=== PATIENT | male | born 1950 | race Caucasian/White ===

== ENCOUNTER → 2019-06-29 | Outpatient (CLI) | payer OTHER ==
[~2019-06-29] MED LIST: ACCUPRIL40 MG PO; ADULT ASPIRIN R81 MG PO; ATENOLOL 50MG T50 M1 PO; DEPO-TESTO200 MG/1 M IM; EFFIENT10 MG PO; FLUOXETINE HCL10 M1 PO; INVOKANA300 MG PO; JANUVIA100 MG PO; LIPITOR80 MG PO; SILDENAFIL CIT100 MG PO
== END | disposition home or self-care (01) ==
LOC: SJCVCIMAG 13:28
DX: I25.10 Atherosclerotic heart disease of native coronary artery without angina pectoris (principal); I10 Essential (primary) hypertension; E78.5 Hyperlipidemia, unspecified; I65.23 Occlusion and stenosis of bilateral carotid arteries; E11.9 Type 2 diabetes mellitus without complications; Z79.899 Other long term (current) drug therapy; Z79.82 Long term (current) use of aspirin

== ENCOUNTER → 2019-07-05 | Outpatient (CLI) | payer OTHER | LOC: SJCVC 10:09 | DX: E11.9 Type 2 diabetes mellitus without complications (principal); E29.1 Testicular hypofunction ==

== ENCOUNTER 2019-07-07 06:32 | Inpatient (IN) | payer OTHER ==
[~2019-07-07] VITALS: Ht 177.8 cm; Wt 71.5 kg
[2019-07-07] VITALS (10 sets, daily range): BP systolic 135–150; BP diastolic 70–80
[2019-07-07] MEDS ORDERED: ADULT ASPIRIN R81 MG PO ×2 (07:37)
[2019-07-07] MEDS ORDERED: ATENOLOL 50MG T50 M1 PO ×2 (07:38)
[2019-07-07] MEDS ORDERED: DEPO-TESTO200 MG/1 M IM ×2 (07:39)
[2019-07-07] MEDS ORDERED: FLUOXETINE HCL10 M1 PO ×2 (07:39)
[2019-07-07] MEDS ORDERED: INVOKANA300 MG PO ×2 (07:40)
[2019-07-07] MEDS ORDERED: ACCUPRIL40 MG PO ×2 (07:41)
[2019-07-07] MEDS ORDERED: JANUVIA100 MG PO ×2 (07:41)
[2019-07-07] MEDS ORDERED: SILDENAFIL CIT100 MG PO ×2 (07:42)
[2019-07-07] MEDS ORDERED: LIPITOR80 MG PO ×2 (10:27)
--- NOTE | 2019-07-07 15:21 | NUR ---
PT ADMITED FROM CARDIAC CATH. ADMISSION HX AND ASSESSMENT COMPLETED. RIGHT GROIN INCISION C/D/I. NO HEMATOMA NOTED. POST CARDIAC CATH INSTRUCTIONS GIVEN TO PT. PT VERBERLISED UNDERSTANDING. WILL CONTINUE TO MONITOR.
--- NOTE | 2019-07-07 16:53 | CATHLAB ---
[facility] [place] [address] INVASIVE PROCEDURE REPORT Name: LESTER WILLS Room #: 210-P ADM IN M.R.#: [id number] Admission: 07/07/19 Attend Phys: Chet Dick MD, Discharge: Date of : 48 Report #: [id number] THIS REPORT FOR: cc: Graham Gonzalez MD, Neal A. MD Lundgren, Craig H. MD [facility] ~ APPROVED REPORT Study performed: 07/07/2019 07:59:09 Patient Details Patient Status: Out-Patient Room #: The patient is a 68 year-old male Event Personnel Chet Dick Lamp Developer, Gladys London RT(R)() Niyah Khan Marie RN RN, Kimber Montilla RTR Monitor, Earnestine Pena Monitor Procedures Performed Art Access - R femoral artery* Left Heart Cath w/or w/o Coronaries 2623879 [facility] [address]18 Initial Mod Sed Same Phys/QHP Gr5y 880616 27690 Mod Sed Same Phys/QHP Ea 148838 DUONG Place w/wo Plasty Single RCA 006102 Hemostasis w/ Mynx Indication Chest pain Procedure Narrative The patient was brought electively to the Cardiac Catheterization Laboratory and was prepped and draped in a sterile manner. The Right Groin^ was infiltrated with 1% Lidocaine subcutaneous anesthesia. A PINNACLE 6FR Sheath #[id number] sheath was inserted into the RFA^. Coronary angiography was performed using coronary diagnostic catheters. The right coronary system was accessed and visualized with a 6FR 3DRC #[id number] catheter. The left coronary system was accessed and visualized with a 6FR JL4 catheter. The left ventricle was accessed and visualized with a PIGTAIL catheter. Left ventricular/Aortic Valve gradient assessed via catheter pullback. Left ventriculogram was performed in BURR projection. Closure device was deployed with a 6 Fr Mynx. The patient tolerated the procedure well and there were no complications associated with the procedure. There was no hematoma. [facility] [address] [place] [address] INVASIVE PROCEDURE REPORT Name: LESTER WILLS HURON Room #: 210-P [facility] IN [facility]#: [id number] Admission: 07/07/19 Attend Phys: Chet Dick, Discharge: Date of : 48 Report #: [id number] Intraoperative Conscious Sedation Sedation start time: 08:15 Case end Time: 09:50 Fentanyl 100 mcg Versed 1 mg Fluoro Time: 31.10 minutes Dose: DAP 09020.00 cGycm2 4978 mGy Contrast Type and Amount: Omnipaque 340 ml Coronary Angiography The patient's coronary anatomy is right dominant. Diagnostic Cath Left Main Normal left main LAD 10-20% calcific proximal to mid LAD plaquing Circumflex Relatively small, nondominant circumflex comprised of a single marginal branch OM1 Mild proximal OM branch plaquing Right Coronary Critical proximal, ostial intrastent right coronary artery stenosis Fairly extensive ezgz-sy-vlaxs collateralization Ramus Moderately large ramus branch with mild proximal plaquing Left Ventriculography The left ventricle is normal in size with abnormal contractility. The left ventricular ejection fraction is estimated to be 45-50%. Left ventricular wall motion abnormalities are present. There is no mitral insufficiency. Hypokinesis involving the base of the inferior wall. Hemodynamics The aortic pressure is 151/69 mmHg with a mean of 98 mmHg. The left ventricular pressure is 144/3 mmHg with a mean of mmHg. The left ventricular end diastolic pressure is 17 mmHg. PCI Technique Lesion Anticoagulation was achieved with Heparin, Integrilin. Patient was preloaded with Effient. Percutaneous coronary intervention was performed on the proximal right coronary artery. The lesion stenosis prior to intervention was 99% with PRABHAKAR 2 flow. A LAUNCHER 6FR JL4 #[id number] Guide Catheter was used to engage the RCA ostium. A Luge Wire .014 x 182CM #[id number] Interventional Guidewire was used to cross the lesion. [facility] [address] [place] [address] INVASIVE PROCEDURE REPORT Name: LESTER WILLS Room #: 210-P [facility] IN .R.#: [id number] Admission: 07/07/19 Attend Phys: Chte Dick, Discharge: Date of : 48 Report #: [id number] BALLOON DILATION A Balloon catheter Euphora RX 2.5 x 12 #[id number] was inserted and inflated up to 16.00atm for 39seconds. Additional Inflation: 18.00atm for 42seconds. Additional Inflation: 18.00atm for 32seconds. STENT DEPLOYMENT A drug-eluting stent RESOLUTE KATIA RX 3.0 X 30 #[id number] was inserted and inflated up to 16.00atm for 30seconds. Repeat angiography revealed the following post-stent deployment results: this 30 mm stent did not completely cover the ostium, covered with a 3.0 x 8mm Resolute in sequence. POST STENT DEPLOYMENT BALLOON DILATION A Balloon catheter TREK NC RX 3.25 X 15 #[id number] was inserted and inflated up to 18.00atm for 39seconds. Additional Inflation: 21.00atm for 34seconds. Additional Inflation: 21.00atm for 26seconds. Final angiography reveals 0 % stenosis with PRABHAKAR 3 flow. STENT DEPLOYMENT A drug-eluting stent RESOLUTE KATIA RX 3.0 X 8 #[id number] was inserted and inflated up to 18.00atm for 40seconds. Conclusion 1. Mild left ventricular dysfunction with hypokinesis involving the inferior wall. Ejection fraction 45-50% 2. Normal left main 3. Mild calcific plaquing of the LAD and nondominant circumflex 4. Severe ostial and proximal right coronary stenosis (old 3.0mm S7 AVE stent), restented with a 3.0 x 30 mm Resolute, and 3.0 x 18 mm more proximal to this in sequence at the ostium. Both postdilated to 3.5 mm Recommendations Cardiac Rehabilitation Referral Aggressive Medical Therapy <ELECTRONICALLY SIGNED> By: Chet Dick MD, [facility] 07/07/191652 52 52 Chet Dick MD, FAC /INF
[2019-07-08] VITALS: BP 138/72
[2019-07-08 00:33] VITALS: BP 138/72
--- NOTE | 2019-07-08 03:34 | NUR ---
ASSESSMENT DOCUMENTED,PT BEEN RESTING IN NO ACUTE DISTRESS.A/OX4.VSS.POST CARDIAC SARI WITH INTERVENTIONS.NSR.RIGHT GROIN INTACT W/O HEMATOMA OR ACTIVE BLEEDING.DRESSING CDI.NO CONCERNS VOICED AT THIS TIME.PT TO DISCHARGE TO HOME TODAY.WILL CONT TO MONITOR PER POC.
[2019-07-08 04:43] VITALS: BP 128/65
[2019-07-08 05:20] VITALS: BP 128/65
[2019-07-08 05:22] LABS: HEMATOCRIT 43.4 % (42.0-52.0); HEMOGLOBIN 14.4 gm/dL (14.0-18.0); MCH 31.3 pg (26.0-34.0); MCHC 33.1 g/dL (28.0-37.0); MCV 94.4 fL (80.0-100.0); RBC 4.6 mil/uL (4.50-6.00); WBC 6.9 thou/uL (4.0-11.0)
[2019-07-08 05:46] LABS: ALBUMIN 3.5 g/dL (3.4-5.0); ANION GAP 9 mmol/L (7-16); BUN 12 mg/dL (7-18); CALCIUM 8.8 mg/dL (8.5-10.1); CHLORIDE 102 mmol/L (98-107); CHOLESTEROL 105 mg/dL (<200); CO2 28 mmol/L (21-32); CREATININE 0.7 mg/dL (0.7-1.3); GLUCOSE 138 mg/dL (74-106); HDL CHOLESTEROL 25 mg/dL (>40); LDL CHOLESTEROL 43 mg/dL (<100); SGOT 16 U/L (15-37); SGPT 29 U/L (30-65); SODIUM 139 mmol/L (136-145); TC:HDL 4.2 Ratio (Not establshd); TOTAL BILIRUBIN 0.9 mg/dL (<0.1-1.0); TOTAL PROTEIN 7.1 g/dL (6.4-8.2); TRIGLYCERIDE 186 mg/dL (<150); VLDL 37 mg/dL (<40)
[2019-07-08 05:48] LABS: SERUM ASSESSMENT Clear
[2019-07-08] MEDS ORDERED: EFFIENT10 MG PO ×2 (07:46)
[2019-07-08 08:00] VITALS: BP 136/64
[2019-07-08 09:38] VITALS: BP 136/64
--- NOTE | 2019-07-08 10:38 | NUR ---
ASSESSMENT CHARTED. PT ALERT AND ORIENTED.VSS, DENIED HAVING PAIN OR DISCOMFORT. RIGHT GROIN INCISION C/D/I. NO HEMATOMA NOTED. ORDERS GIVEN TO DISCHARGE PT TO HOME. DISCHARGE INSTRUCTIONS GIVEN TO PT. PT VERBERLISED UNDERSTANDING.
--- NOTE | 2019-07-11 10:45 | D ---
[facility] [address] DISCHARGE SUMMARY Name: LESTER WILLS Room #: 210-P [facility] IN M.R.#: [id number] Admission: 07/07/19 Attend Phys: Chet Dick MD, Discharge: 07/08/19 Date of : 48 Report #: [id number] THIS REPORT FOR: cc: Graham Gonzalez MD, Neal A. MD Lundgren, Craig H. MD [facility] ~ THIS REPORT FOR: //name// CC: Chet Gonzalez MD DATE OF SERVICE: 07/07/2019 DISCHARGE DIAGNOSES: 1. Unstable angina with stenting of the proximal right coronary with a 3.0 x 30 mm and 3.0 x 8 mm Resolute stents, postdilated to 3.5 mm. 2. Hypertension. 3. Diabetes. 4. Dyslipidemia. HISTORY OF PRESENT ILLNESS: For the complete details of the history of present illness, see dictated history and physical. Briefly, the patient is a 68-year-old gentleman with a history of remote nonmedicated stenting of the proximal right coronary (3.0 x 12 mm S7 stent) in 2002. His history includes hypertension, diabetes and dyslipidemia. Over the past several weeks, the patient had experienced midsternal chest tightness and "indigestion" with exertion. He reports that this was reminiscent to what he experienced prior to his stenting procedure many years ago. No heart failure symptoms including orthopnea, paroxysmal nocturnal dyspnea or lower extremity edema. An outpatient stress study suggested provokable myocardial inferior ischemia. Symptoms were reproduced. He was admitted now for coronary angiography. HOSPITAL COURSE: The patient underwent coronary angiography. The full details of this can be found under separate heading and dictation. In summary, mild left ventricular dysfunction was present with inferior wall hypokinesis. The LAD, left main and circumflex exhibited mild calcific plaquing. Right coronary was dominant and subtotally occluded with PRABHAKAR 1-2 flow. He underwent a fairly complicated stenting of this calcified and bulky stenosis. A 3.0 x 30 mm Resolute stent was placed proximally. This failed to completely cover the ostial stenosis, which was then stented with a 3.0 x 8 mm Resolute stent in sequence. Both stents were postdilated to 3.5 mm with a noncompliant balloon. He was treated with heparin, Integrilin, Effient and aspirin in the periprocedural setting. He was ambulating with excellent groin hemostasis at the time of discharge. [address] [address] DISCHARGE SUMMARY Name: LESTER WILLS Room #: [address] [place] [address] [place] ..#: [id number] Admission: 07/07/19 Attend Phys: Chet Dick MD, Discharge: 07/08/19 Date of : 48 Report #: [id number] DISCHARGE MEDICATIONS: Discharge medicines were reconciled. Arrangements were made for outpatient cardiac rehabilitation. Discharge medicines include the following: Aspirin 81 mg daily, Effient 10 mg daily, Tenormin 50 mg daily, atorvastatin 80 mg daily, Prozac 20 mg daily, Invokana 300 mg daily, Januvia 100 mg daily, metformin 500 mg at breakfast, quinapril 40 mg daily. DISCHARGE DIET: Low fat, low cholesterol, prudent diabetic diet. DISCHARGE ACTIVITY: As instructed post-catheterization and stenting. Arrangements were made for outpatient cardiac rehabilitation. DISCHARGE FOLLOWUP: With Dr. Gonzalez as directed. FOLLOWUP: With myself in 4-6 weeks. DISCHARGE CONDITION: Stable and improved. <ELECTRONICALLY SIGNED> By: Chet Dick MD, FACC 07/11/19 1045 1730 1937 Chet Dick MD, FACC /nt
--- NOTE | 2019-08-05 15:20 | EKG ---
[facility] [place] [address] ELECTROCARDIOGRAM REPORT Name: LESTER WILLS Room #: 210-[facility] IN M.R.#: [id number] Admission: 07/07/19 Attend Phys: Chet Dick MD, Discharge: 07/08/19 Date of : 48 Report #: [id number] THIS REPORT FOR: cc: Graham Gonzalez MD, Neal A. MD Couchonnal, Luis F. MD ~ THIS REPORT FOR: //name// [facility] Test Date: 2019-07-07 Test Time: 10:21:53 Pat Name: LESTER WILLS Department: Room: Gender: Developer Designer: Andi FLYNN : 1950 Requested By: Chet Dick Order Number: [id number] MD: Rizwan Alvarez Measurements Intervals [place] Rate: 61 P: 14 OR: 139 QRS: -50 QRSD: 106 T: -53 QT: 433 QTc: 437 Interpretive Statements Sinus rhythm Abnormal R-wave progression, late transition Inferior infarct, age indeterminate Compared to ECG 09/17/2002 06:41:40 Electronically Signed On 07-07-2019 11:42:41 SENIOR PROJECT ARCHITECT by Rizwan Alvarez [email or web address] <ELECTRONICALLY SIGNED> By: Rizwan Alvarez MD 07/07/19 1142 1021 1021 Rizwan Alvarez MD /EPI
--- NOTE | 2019-08-05 15:21 | EKG ---
[facility] [place] [address] ELECTROCARDIOGRAM REPORT Name: LESTER WILLS Room #: 210-P DIS IN M.R.#: [id number] Admission: 07/07/19 Attend Phys: Chet Dick MD, Discharge: 07/08/19 Date of : 48 Report #: [id number] THIS REPORT FOR: cc: Graham Gonzalez MD, Neal A. MD Lundgren,Chet Herrera MD [facility] ~ THIS REPORT FOR: //name// [facility] Test Date: 2019-07-08 Test Time: 07:08:12 Pat Name: LESTER WILLS Department: Room: 210 P Gender: M Sales Development Director: STANISLAV : 1950 Requested By: Chet Dick Order Number: [id number] MD: Chet Dick Measurements Intervals [place] Rate: 67 P: 7 AL: 133 QRS: -46 QRSD: 101 T: -46 QT: 401 QTc: 424 Interpretive Statements Sinus rhythm Inferior infarct, age indeterminate Compared to ECG 07/07/2019 10:21:53 No significant changes Electronically Signed On 07-08-2019 9:09:13 LOG RIDER by Chet Dick [email or web address] <ELECTRONICALLY SIGNED> By: Chet Dick MD, [facility] 07/08/19908 7 7 Chet Dick MD, [facility] /EPI
== END 2019-07-08 10:52 | disposition home or self-care (01) | DRG 247 ==
LOC: CATH 06:32 → 2N 14:08 → CATH 14:13 → ENTRNSPT 07-08 10:36 → EDTRNSPTSTS 07-08 10:40 → 2N 07-08 10:52
PROVIDERS: ADMIT Internal Medicine
PROC: 4A023N7 Measurement of Cardiac Sampling and Pressure, Left Heart, Percutaneous Approach (ICD-10-PCS; principal; 2019-07-07)
PROC: 027135Z Dilation of Coronary Artery, Two Arteries with Two Drug-eluting Intraluminal Devices, Percutaneous Approach (ICD-10-PCS; principal; 2019-07-07)
PROC: B2111ZZ Fluoroscopy of Multiple Coronary Arteries using Low Osmolar Contrast (ICD-10-PCS; principal; 2019-07-07)
PROC: B2151ZZ Fluoroscopy of Left Heart using Low Osmolar Contrast (ICD-10-PCS; principal; 2019-07-07)
DX: I25.110 Atherosclerotic heart disease of native coronary artery with unstable angina pectoris (principal); I10 Essential (primary) hypertension; E11.9 Type 2 diabetes mellitus without complications; E78.5 Hyperlipidemia, unspecified; Z79.82 Long term (current) use of aspirin; Z79.899 Other long term (current) drug therapy
CPT/HCPCS: 10081

== ENCOUNTER → 2019-11-03 | Outpatient (CLI) | payer OTHER | LOC: SJCVC 11:20 | PROVIDERS: ATTEND Internal Medicine | DX: R94.31 Abnormal electrocardiogram [ECG] [EKG] (principal); I25.10 Atherosclerotic heart disease of native coronary artery without angina pectoris; R00.1 Bradycardia, unspecified; I10 Essential (primary) hypertension; E78.5 Hyperlipidemia, unspecified; I65.23 Occlusion and stenosis of bilateral carotid arteries; E11.9 Type 2 diabetes mellitus without complications; Z79.899 Other long term (current) drug therapy ==

== ENCOUNTER → 2020-05-22 | Outpatient (CLI) | payer OTHER | LOC: SJCVC 10:49 | PROVIDERS: ATTEND Internal Medicine | DX: R94.31 Abnormal electrocardiogram [ECG] [EKG] (principal); I25.10 Atherosclerotic heart disease of native coronary artery without angina pectoris; I10 Essential (primary) hypertension; E78.5 Hyperlipidemia, unspecified; I65.23 Occlusion and stenosis of bilateral carotid arteries; E11.9 Type 2 diabetes mellitus without complications; Z79.82 Long term (current) use of aspirin; Z79.899 Other long term (current) drug therapy; Z72.89 Other problems related to lifestyle ==

== ENCOUNTER → 2020-11-20 | Outpatient (CLI) | payer OTHER | LOC: SJCVC 13:32 | PROVIDERS: ATTEND Internal Medicine | DX: R94.31 Abnormal electrocardiogram [ECG] [EKG] (principal); I25.10 Atherosclerotic heart disease of native coronary artery without angina pectoris; I10 Essential (primary) hypertension; E78.5 Hyperlipidemia, unspecified; I65.23 Occlusion and stenosis of bilateral carotid arteries; E11.9 Type 2 diabetes mellitus without complications; E78.00 Pure hypercholesterolemia, unspecified; Z79.82 Long term (current) use of aspirin; Z79.899 Other long term (current) drug therapy ==

== ENCOUNTER → 2021-05-22 | Outpatient (CLI) | payer OTHER | LOC: SJCVCIMAG 08:45 | PROVIDERS: ATTEND Internal Medicine | DX: I25.9 Chronic ischemic heart disease, unspecified (principal); R00.0 Tachycardia, unspecified; R06.00 Dyspnea, unspecified; I25.118 Atherosclerotic heart disease of native coronary artery with other forms of angina pectoris; I10 Essential (primary) hypertension; E78.5 Hyperlipidemia, unspecified; I48.0 Paroxysmal atrial fibrillation; I65.23 Occlusion and stenosis of bilateral carotid arteries; E78.00 Pure hypercholesterolemia, unspecified; E11.9 Type 2 diabetes mellitus without complications; Z72.89 Other problems related to lifestyle; Z79.82 Long term (current) use of aspirin; Z79.899 Other long term (current) drug therapy ==